=== PATIENT | male | born 1980 | race Caucasian/White ===

== ENCOUNTER 2016-11-30 12:13 | Emergency (ER) | payer OTHER ==
[~2016-11-30] VITALS: Ht 175.3 cm; Wt 99.0 kg
[2016-11-30 12:16] VITALS: Ht 175.3 cm; Wt 99.0 kg
--- NOTE | 2016-11-30 12:41 | ERA ---
ER Documentation Chief Complaint Date/Time DATE: 11/30/16 TIME: 12:36 Chief Complaint painful urination x 3 months; low back sx 3 months ago HPI 36-year-old male with history of hemorrhoids presenting with a chief complaints of pain in the anal region. Contact PCP, told him to come here to get a referral to a GI specialist. Patient states that he wants to be evaluated for hemorrhoids which are worsening and pain. Denies any prolapsing, bleeding, nausea, vomiting, abdominal pain, constipation, diarrhea. Patient's had these symptoms 3 months. Wants referral to GI specialist. Patient has no other complaints and describes no other associated manifestations. Nursing notes have been reviewed and are consistent with history given. ROS All systems reviewed and are negative except as per history of present illness. Physical Exam Vitals Vital Signs Date Time Temp Pulse Resp B/P Pulse Ox O2 Delivery O2 Flow Rate FiO2 11/30/16 12:16 98.6 84 16 134/91 98 Physical Exam Const: Obese, no acute distress Head: Atraumatic Eyes: Normal Conjunctiva ENT: Normal External Ears, Nose and Mouth. Neck: Full range of motion..~ No meningismus. Resp: Clear to auscultation bilaterally Cardio: Regular rate and rhythm, no murmurs Abd: Soft, non tender, non distended. Normal bowel sounds Skin: No petechiae or rashes Back: No midline or flank tenderness Ext: No cyanosis, or edema Neur: Awake and alert Psych: Normal Mood and Affect No hemorrhoids seen in the anal region. Digital rectal exam revealing possible hemorrhoids on the posterior wall but otherwise unremarkable. Procedures/MDM Otherwise healthy 36-year-old male presenting with hemorrhoids 3 months. States that the pain is not going away. Denies any symptoms or signs of external hemorrhoids or internal hemorrhoids stage II or higher. Patient is already taking medications from PCP including creams and stool softeners/ bulking agents. I agree with this management this time. Patient will be given a referral to GI specialist. I have little suspicion for diverticulitis, mechanical obstruction, anal fissure, or other acute abdomen. I have spoke with the patient regarding their condition and future management. They have verbally responded that they understand their status and treatment plan. The patients vitals are stable, and their current condition is appropriate for discharge. The patient will be given discharge instructions with return precautions. Departure Diagnosis: Primary Impression: Hemorrhoids, internal Condition: Stable Patient Instructions: Treating Hemorrhoids: Self-Care, Treating Hemorrhoids: Surgery Referrals: EVELIN PAULA MD, NAGARAJ M MD CHHABLANI, RAHUL K. CHITAYAT,JAS HARRIS MD,LAWRENCE YAP,TACOS COTTO,JACQUI MORALES,OLI KEARNEY,FARRAH SHAY MD, MD,NUBIA BOOKER,[facility] YOU HAVE RECEIVED A MEDICAL SCREENING EXAM AND THE RESULTS INDICATE THAT YOU DO NOT HAVE A CONDITION THAT REQUIRES URGENT TREATMENT IN THE EMERGENCY DEPARTMENT. FURTHER EVALUATION AND TREATMENT OF YOUR CONDITION CAN WAIT UNTIL YOU ARE SEEN IN YOUR DOCTORS OFFICE WITHIN THE NEXT 1-2 DAYS. IT IS YOUR RESPONSIBILITY TO MAKE AN APPOINTMENT FOR FOLOW-UP CARE. IF YOU HAVE A PRIMARY DOCTOR --you should call your primary doctor and schedule and appointment IF YOU DO NOT HAVE A PRIMARY DOCTOR YOU CAN CALL OUR PHYSICIAN REFERRAL HOTLINE AT . IF YOU CAN NOT AFFORD TO SEE A PHYSICIAN YOU CAN CHOSE FROM THE FOLLOWING [facility] INSTITUTIONS: [facility] [address] [place] [address] [facility] [address] [place] [address] [facility] [address] [place] [address] [facility] () Usted se shell hecho un examen mdico de control que le indica que no est en courtney condicin que requiera tratamiento urgente en el Departamento de Emergencia. Un estudio ms profundo y el tratamiento de awan condicin pueden esperar sin ningn riesgo hasta que usted sea atendida/o en el consultorio de awan mdico o courtney cl sudha. Es responsabilidad suya arreglar courtney lo para el seguimiento del ashley. MANEJO DE CONDICIONES NO URGENTES EN EL FUTURO 1) Si usted tiene un mdico de atencin primaria: Usted debera llamar a awan mdico de atencin primaria antes de venir al departamento de emergencia. Despus de las horas de consultorio, awan doctor o awan asociado/a est disponible por telfono. El mdico o enfermero de lj en el servicio telefnico puede asesorarle por ifeanyi medio para atender el problema, o ashley contrario se puede programar courtney lo. 2) Si usted no tiene un mdico de atencin primaria: Llame al mdico o condado institucions de referencia que aparece abajo nino las horas de consultorio para hacer courtney lo para que le vean. SI USTED NO PUEDE PAGAR PARA RENZO UN MEDICO puede ir a: [facility] [address] [place] [address] [facility] [address] [place] [address] [facility] [address] [place] [address] [facility] [address] [place] [address] Additional Instructions: Follow up with your PCP within the next 1-3 days for a more thorough evaluation and a possible referral to a specialist. If unable to follow-up with PCP, contact a GI specialist as listed in the packet given to you. Return the the emergency department immediately if symptoms worsen or change. If you have any questions regarding medications, ask your pharmacist or us before you leave. If any adverse reactions occur while taking your medications, discontinue the treatment and return to the emergency department immediately. Take your medications as directed, and complete the entire course of treatment. ELIANE JURADO PA-C Nov 30, 2016 12:40
== END 2016-11-30 12:56 | disposition home or self-care (01) ==
LOC: FTE 12:13
DX: K64.8 Other hemorrhoids (principal)
CPT/HCPCS: 99284

== ENCOUNTER 2016-12-29 11:06 | Day surgery (SDC) | payer OTHER ==
[~2016-12-29] VITALS: Ht 170.2 cm; Wt 96.5 kg
[2016-12-29 11:34] VITALS: Ht 170.2 cm; Wt 96.5 kg
[2016-12-29] MEDS ORDERED: NORCO (11:39)
[2016-12-29 11:56] VITALS: BP 121/75; PULSE 78; RESP 28
[2016-12-29] MEDS ORDERED: LIDOCAINE 2% (SDV) 5 ML INJ ONE (12:31)
[2016-12-29] MEDS ORDERED: PROPOFOL 40 ML ONE (12:31)
[2016-12-29] MEDS ORDERED: CEFAZOLIN 1 GM/50 ML (PMX) 50 ML IVPB ONE (13:17)
--- NOTE | 2016-12-29 13:54 | OPPN ---
Date/Time of Note Date/Time of Note DATE: 12/29/16 TIME: 13:42 Colonoscopy normal except except external hemorrhoids grade 1 Recommendation follow-up with primary MD ANUSOL HC suppositories as needed Repeat colonoscopy in 10 years Operative Report Preoperative Diagnosis Rectal pain Change in bowel habit rectal bleeding Postoperative Diagnosis Diagnostic colonoscopy Operation/Procedure Performed Colonoscopy Surgeon see signature line child development assistant HERRERA Second assist: COMPA SILVERMAN Anesthesia: MAC Estimated blood loss: none Transfusion Required none Specimen NONE Grafts/Implants none Complications none ERIS OWENS MD Dec 29, 2016 13:52
[2016-12-29 14:05] VITALS: BP 122/78; RESP 18
--- NOTE | 2016-12-29 15:02 | GILP ---
DATE OF PROCEDURE: 12/29/2016 SURGEON: Maria Del Rosario Case MD. PREOPERATIVE DIAGNOSES: 1. Constipation. 2. Change in bowel habits. 3. Rectal bleeding. 4. Rectal pain. POSTOPERATIVE DIAGNOSIS: Grade 1 external hemorrhoids, otherwise normal colonoscopy. DESCRIPTION OF PROCEDURE: The patient was put in left lateral decubitus. The patient was put in left lateral decubitus. After obtaining informed consent, the patient was sedated, monitored by the anesthesia STAIN SPRAYER, Elli Dobbins. Then I advanced Olympus video colonoscope all the way to the cecum. The colon was quite well-prepped. The cecum was identified with the ileocecal valve appendiceal opening. Cecum and ascending colon were normal. Transverse colon, descending colon normal. Sigmoid colon normal. Rectum including retroflexion was normal, except external hemorrhoids. PLAN: I advised him to have Anusol suppositories for the rectal pain. Recommended to take MiraLAX or stool softener. Follow up with primary MD. Repeat colonoscopy in 10 years. No follow-up required in my office. The patient will follow up with the primary MD. Dictated By: Maria Del Rosario Case MD /carine/elsa /Document#: [id number] CC: Maria Del Rosario Case MD;*EndCC*
== END 2016-12-29 14:46 | disposition home or self-care (01) ==
LOC: GIL 11:06
PROVIDERS: ATTEND Internal Medicine
DX: R19.4 Change in bowel habit (principal); K64.0 First degree hemorrhoids
CPT/HCPCS: 45378; J0690